=== PATIENT | female | born 1940 | race Caucasian/White ===

== ENCOUNTER → 2016-02-27 | Outpatient (CLI) | payer MEDICARE, OTHER ==
[~2016-02-27] MED LIST: METO-270 PO
--- NOTE | 2016-02-28 18:33 | Diagnostic Imaging Report ---
INDICATION: Screening mammogram COMPARISON: January 27, 2013 The current study was also evaluated with a Computer Aided Detection (CAD) system. FINDINGS: CC and MLO digital mammographic views of the breasts were obtained. There are scattered fibroglandular densities that could obscure a lesion on mammography. Multiple nodular densities are again identified scattered throughout the bilateral breasts. Benign appearing calcifications are again seen scattered throughout the bilateral breasts. There is no dominant mass, suspicious cluster of microcalcifications or other evidence to indicate malignancy. There has been no significant change from prior mammograms. IMPRESSION: Stable mammogram without evidence of malignancy. BI-RADS category 2: Benign findings Result letter will be mailed to the patient. Follow-up: Yearly mammogram NOTE: Keep in mind that about 10% of breast cancers will not be identified on mammography. Further evaluation of a palpable mass not seen on mammography should be based on clinical grounds. Dictated by: Dictated on workstation # [id number]
== END ==
LOC: RAD 13:25
PROVIDERS: ATTEND Family Medicine
DX: Z12.31 Encounter for screening mammogram for malignant neoplasm of breast (principal)

== ENCOUNTER 2016-04-08 06:59 | Day surgery (SDC) | payer MEDICARE, OTHER ==
[~2016-04-08] VITALS: Ht 162.6 cm; Wt 73.0 kg
[~2016-04-08 06:59] MED LIST changes: +LACTATED RINGERS 1,000 ML IV SCH; -METO-270 PO; +SODIUM CHLORIDE FLUSH 3 ML SYR IV PRN
[2016-04-08 07:06] VITALS: BP 136/83
[2016-04-08] MEDS ORDERED: ALFENTANIL 500 MCG/ML (ALFENTA) 5 ML AMP IV ONE (08:06)
[2016-04-08] MEDS ORDERED: PROPOFOL 20 ML IV ONE (08:07)
[2016-04-08] MEDS ORDERED: MIDAZOLAM 2 MG/2 ML (VERSED) VIAL ONE (08:07)
[2016-04-08 09:02] VITALS: BP 138/69
[2016-04-08 09:27] VITALS: BP 141/85
== END 2016-04-08 09:30 | disposition home or self-care (01) ==
LOC: ASC 06:59
PROVIDERS: ATTEND Surgery
DX: Z12.11 Encounter for screening for malignant neoplasm of colon (principal); I10 Essential (primary) hypertension; Z79.82 Long term (current) use of aspirin; I47.1 Supraventricular tachycardia
CPT/HCPCS: G0121; J2250